=== PATIENT | male | born 1935 | race Caucasian/White ===

== ENCOUNTER 2023-06-11 23:53 | Emergency (ER) | payer BC ==
[~2023-06-11] VITALS: Ht 170.2 cm; Wt 91.9 kg
[2023-06-12 00:33] VITALS: BP 162/84; O2SAT 99
[2023-06-12 01:19] LABS: BASOPHILS % 0.5 % (0.0-2.0); EOSINOPHILS % 5.7 % (0.0-5.0); HEMATOCRIT. 34.9 % (42.0-52.0); HEMOGLOBIN. 11.7 g/dL (14.0-18.0); LYMPHOCYTES % 31.8 % (20.0-50.0); MEAN CORPUSCULAR HEMOGLOBIN 28.8 pg (28.0-32.0); MEAN CORPUSCULAR HGB CONC 33.4 g/dL (31.0-37.0); MEAN CORPUSCULAR VOLUME 86.3 fL (80.0-94.0); MEAN PLATELET VOLUME 8.5 fl (7.4-10.4); MONOCYTES % 6.4 % (2.0-8.0); NEUTROPHILS % 55.6 % (40.0-76.0); PLATELET 183 x1000/uL (130-400); RED BLOOD CELL COUNT 4.05 mill/uL (4.7-6.1); RED CELL DISTRIBUTION WIDTH 18.5 % (11.6-14.6); WHITE BLOOD COUNT 9.6 x1000/uL (4.5-11.0)
[2023-06-12 01:25] LABS: CHLORIDE 109 mEq/L (98-107); INDEX HEMOLYSI 1 (1-3); INDEX ICTERIC 1 (1-4); INDEX LIPEMIC 1 (1-3); POTASSIUM 4.6 mEq/L (3.5-5.1); SODIUM 138 mEq/L (136-145)
[2023-06-12 01:26] LABS: CALCIUM 9.3 mg/dL (8.5-10.1)
[2023-06-12 01:33] LABS: CARBON DIOXIDE 24 mEq/L (21-32); CREATININE 1.1 mg/dL (0.6-1.3); GLUCOSE 97 mg/dL (70-105); UREA NITROGEN BLOOD 21 mg/dL (7-21)
[2023-06-12] MEDS ORDERED: TRANEXAMIC ACID 1,000 MG/10 ML TP ONE (01:45)
[2023-06-12 02:10] LABS: INR 1.6; PROTHROMBIN TIME 16.7 sec (9.6-11.0)
[2023-06-12 07:01] VITALS: PULSE 92; RESP 16; TEMP 98.2
== END 2023-06-12 07:05 | disposition home or self-care (01) ==
LOC: ER 23:53
DX: S01.01XA Laceration without foreign body of scalp, initial encounter (principal); E11.9 Type 2 diabetes mellitus without complications; Z85.9 Personal history of malignant neoplasm, unspecified; X58.XXXA Exposure to other specified factors, initial encounter; Y93.89 Activity, other specified; Y92.89 Other specified places as the place of occurrence of the external cause; Y99.8 Other external cause status
CPT/HCPCS: 99284; 80048; 85025; 85610; 36415; 70450; Z7610 ×3